=== PATIENT | male | born 1955 | race Caucasian/White ===

== ENCOUNTER 2020-09-06 09:56 | Emergency (ER) | payer MEDICARE, OTHER, SELFPAY ==
[~2020-09-06] VITALS: Ht 177.8 cm; Wt 100.4 kg
[2020-09-06] MEDS ORDERED: METF500T13 (10:10)
[2020-09-06] MEDS ORDERED: FURO40TA2 (10:10)
[2020-09-06] MEDS ORDERED: TAMS1CAP17 (10:10)
[2020-09-06] MEDS ORDERED: LOSA100T50 (10:10)
[2020-09-06] MEDS ORDERED: OMEP-218 (10:10)
[2020-09-06] MEDS ORDERED: GLIP5TAB8 (10:10)
[2020-09-06] MEDS ORDERED: CIPR-249 PO (12:03)
[2020-09-06 12:11] VITALS: BP 145/81
== END 2020-09-06 12:12 | disposition home or self-care (01) ==
LOC: M ED 09:56
DX: N30.91 Cystitis, unspecified with hematuria (principal); C61 Malignant neoplasm of prostate; I10 Essential (primary) hypertension; E11.9 Type 2 diabetes mellitus without complications; Z96.0 Presence of urogenital implants

== ENCOUNTER → 2020-10-01 | Outpatient (REF) | payer MEDICARE, SELFPAY ==
[~2020-10-01] MED LIST: CIPR-249 PO; ECOT81TA5 PO; FURO40TA2; GLIP5TAB8; LOSA100T50; METF500T13; OMEP-218; TAMS1CAP17
[2020-10-01 13:51] LABS: APPEARANCE, URINE CLOUDY (CLEAR); BACTERIA, URINE AUTO NEGATIVE (NEGATIVE); BILIRUBIN, URINE AUTO NEGATIVE (NEGATIVE); BLOOD, URINE BLOOD 3+ (NEGATIVE); COLOR, URINE YELLOW (YELLOW); GLUCOSE, URINE (UA) AUTO 1+ mg/dL (NEGATIVE); KETONE, URINE AUTO NEGATIVE (NEGATIVE); LEUKOCYTE ESTERASE, URINE AUTO 1+ (NEGATIVE); MUCUS, URINE SMALL (NEGATIVE); NITRITE, URINE AUTO NEGATIVE (NEGATIVE); PROTEIN, URINE AUTO 2+ mg/dL (NEGATIVE); RBC, URINE AUTO TNTC /HPF (0-3); SPECIFIC GRAVITY URINE AUTO 1.019 (1.002-1.035); SQUAMOUS EPITHELIAL CELL UR AU 0 /HPF (0-6); UROBILINOGEN, URINE AUTO 0.2 mg/dL (0.0-2.0); WBC, URINE AUTO 7 /HPF (0-3)
== END ==
LOC: M SMT 13:01
PROVIDERS: ATTEND Urology
DX: R31.0 Gross hematuria (principal); N40.1 Benign prostatic hyperplasia with lower urinary tract symptoms

== ENCOUNTER → 2020-10-02 | Outpatient (CLI) | payer MEDICARE, OTHER, SELFPAY | LOC: M LABSMTC 10:16 | PROVIDERS: ATTEND Anesthesiology | DX: Z20.828 Contact with and (suspected) exposure to other viral communicable diseases (principal); Z11.59 Encounter for screening for other viral diseases ==

== ENCOUNTER → 2020-10-07 | Day surgery (SDC) | payer SELFPAY ==
[~2020-10-07] VITALS: Ht 180.3 cm; Wt 86.2 kg
[~2020-10-07] MED LIST changes: +ACETAMINOPHEN 1000MG 100ML IV BTL (OFIRMEV) (J0131 PER 10MG) As Ordered ONE; +KETOROLAC 60MG 2ML VIAL As Ordered ONE; +LIDOCAINE 1% MDV 20ML VIAL SQ PRN; +LIDOCAINE 2% 100MG/5ML SDV (FOR ANES.) As Ordered ONE; +LR 1,000 ML IV ONE; +MIDAZOLAM INJ 2MG/2ML VIAL (J2250 PER 1MG) As Ordered ONE; +ONDANSETRON 4MG/2ML VIAL As Ordered ONE; +ROCURONIUM BROMIDE 50 MG/5 ML VIAL As Ordered ONE; +SUGAMMADEX SODIUM 500 MG/5 ML VIAL (BRIDION) As Ordered ONE; +ceFAZolin SOD 2 GM in IV 1 EA IV ONE; +dexameTHASONE 4 MG/ML 1ML VIAL (J1100 PER 1MG) As Ordered ONE; +fentaNYL 100 MCG/2 ML INJECTION (J3010) As Ordered ONE; +propofoL 200 MG/20 ML VIAL As Ordered ONE
[2020-10-07 13:06] VITALS: BP 175/80
== END | disposition home or self-care (01) ==
LOC: M SDC 12:41
PROVIDERS: ATTEND Urology
DX: N40.1 Benign prostatic hyperplasia with lower urinary tract symptoms (principal); Z53.29 Procedure and treatment not carried out because of patient's decision for other reasons

== ENCOUNTER 2020-11-09 11:32 | Emergency (ER) | payer MEDICARE, SELFPAY ==
[~2020-11-09] VITALS: Ht 177.8 cm; Wt 91.6 kg
[~2020-11-09 11:32] MED LIST changes: -ACETAMINOPHEN 1000MG 100ML IV BTL (OFIRMEV) (J0131 PER 10MG) As Ordered ONE; -KETOROLAC 60MG 2ML VIAL As Ordered ONE; -LIDOCAINE 1% MDV 20ML VIAL SQ PRN; -LIDOCAINE 2% 100MG/5ML SDV (FOR ANES.) As Ordered ONE; -LR 1,000 ML IV ONE; -MIDAZOLAM INJ 2MG/2ML VIAL (J2250 PER 1MG) As Ordered ONE; -OMEP-218; +OMEP-218 PO; -ONDANSETRON 4MG/2ML VIAL As Ordered ONE; -ROCURONIUM BROMIDE 50 MG/5 ML VIAL As Ordered ONE; -SUGAMMADEX SODIUM 500 MG/5 ML VIAL (BRIDION) As Ordered ONE; -TAMS1CAP17; +TAMS1CAP17 PO; -ceFAZolin SOD 2 GM in IV 1 EA IV ONE; -dexameTHASONE 4 MG/ML 1ML VIAL (J1100 PER 1MG) As Ordered ONE; -fentaNYL 100 MCG/2 ML INJECTION (J3010) As Ordered ONE; -propofoL 200 MG/20 ML VIAL As Ordered ONE
[2020-11-09] MEDS ORDERED: ENAL5TA PO (12:04)
[2020-11-09 12:37] LABS: HEMATOCRIT 37.4 % (42.0-52.0); HEMOGLOBIN 11.9 g/dl (13.5-17.5); MEAN CORPUSCULAR HEMOGLOBIN 26.6 pg (27.0-33.0); MEAN CORPUSCULAR HGB CONC 31.8 g/dl (32.0-36.5); MEAN CORPUSCULAR VOLUME 83.5 fl (80.0-96.0); PLATELET COUNT, AUTOMATED 279 10^3/uL (150-450); RED BLOOD COUNT 4.48 10^6/uL (4.30-6.10); WHITE BLOOD COUNT 8.7 10^3/uL (4.0-10.0)
[2020-11-09 12:45] LABS: BILIRUBIN, URINE MANUAL NEGATIVE (NEGATIVE); GLUCOSE, URINE (UA) MANUAL NEGATIVE (NEGATIVE); KETONE, URINE MANUAL NEGATIVE (NEGATIVE); UROBILINOGEN, URINE MANUAL NORMAL (NORMAL)
[2020-11-09 12:48] LABS: INR 0.87
[2020-11-09 12:52] LABS: BACTERIA, URINE SMALL AMOUNT; HYALINE CAST, URINE NONE SEEN /lpf (0-1); RBC, URINE TNTC /hpf (0-3); SQUAMOUS EPITHELIAL CELL URINE SMALL AMOUNT /hpf (SMALL AMT)
[2020-11-09] MEDS ORDERED: LIDOCAINE 2% 5ML JELLY UROJET TOP ONE (13:00)
[2020-11-09 13:44] VITALS: BP 149/67
[2020-11-09] MEDS ORDERED: METO1TAB33 PO (20:17)
[2020-11-09] MEDS ORDERED: FURO20TA2 PO (20:17)
[2020-11-09] MEDS ORDERED: GLYB5TAB6 PO (20:17)
[2020-11-10] MEDS ORDERED: BACT800T5 PO (16:20)
== END 2020-11-09 14:24 | disposition home or self-care (01) ==
LOC: M ED 11:32
DX: R31.29 Other microscopic hematuria (principal); T83.091A Other mechanical complication of indwelling urethral catheter, initial encounter; E11.9 Type 2 diabetes mellitus without complications; N40.1 Benign prostatic hyperplasia with lower urinary tract symptoms; I11.0 Hypertensive heart disease with heart failure; Z46.6 Encounter for fitting and adjustment of urinary device

== ENCOUNTER 2020-11-09 16:43 | Observation (INO) | payer MEDICARE, SELFPAY ==
[~2020-11-09] VITALS: Ht 180.3 cm; Wt 91.2 kg
[~2020-11-09 16:43] MED LIST changes: +ENAL5TA PO
[2020-11-09] MEDS ORDERED: LIDOCAINE 2% 5ML JELLY UROJET TOP ONE (17:25)
--- NOTE | 2020-11-09 20:08 | HPEPDOC ---
General Date of Admission Chief Complaint The patient is a 65-year-old male admitted with a reason for visit of Urinary Retention. Home Medications Scheduled Aspirin (Ecotrin) 81 Mg Tablet.dr, 81 MG PO DAILY, (Reported) Enalapril Maleate (Enalapril Maleate) 5 Mg Tablet, 1 TAB PO BID, (Reported) Miscellaneous Medications Furosemide (Furosemide) 40 Mg Tablet, (Reported) Glipizide (Glipizide) 5 Mg Tablet, (Reported) Omeprazole (Omeprazole) 20 Mg Capsule.dr, (Reported) Tamsulosin Hcl (Tamsulosin HCl) 0.4 Mg Capsule, (Reported) Allergies Coded Allergies: No Known Allergies (Unverified , 05/09/14) Vital Signs Vital Signs Date Time Temp Pulse Resp B/P (MAP) Pulse Ox O2 Delivery O2 Flow Rate FiO2 11/09/20 18:14 11/09/20 16:44 98.2 82 18 95 Room Air Laboratory Data Labs 24H Laboratory Tests 2 11/09/20 17:58: Bedside Glucose (Misc Panel) 193H 11/09/20 18:30: POC Glucose (Misc Panel) 187H, POC Sodium (Misc Panel) 140, POC Potassium (Misc Panel) 3.3L, POC Chloride (Misc Panel) 101, POC Total CO2 (Misc Panel) 25.0, POC Blood Urea Nitrogen (Misc Panel 14, POC Ionized Calcium (Misc Panel) 4.8, POC Creatinine (Misc Panel) 1.0, POC Hematocrit (Misc Panel) 32.0L Assessment/Plan Pt managed with indwelling catheter. Presented to ER with hematuria. Catheter changed and pt discharged home. Presented again to ER because catheter wasn't draining. 3way catheter placed and cbi started. Pt brought in for observation. TRACEY ULQUE MD Nov 09, 2020 20:08
[2020-11-09] MEDS ORDERED: GLYB5TAB6 PO (20:17)
[2020-11-09] MEDS ORDERED: METO1TAB33 PO (20:17)
[2020-11-09] MEDS ORDERED: FURO20TA2 PO (20:17)
[2020-11-09 21:09] LABS: RSV AMPLIFICATION NEGATIVE (NEGATIVE)
[2020-11-09] MEDS: CIPROFLOXACIN 500MG TABLET PO SCH (21:20)
[2020-11-09] MEDS: D5W/0.45% SODIUM CHLORIDE 1,000 ML IV SCH (21:21)
[2020-11-09 23:05] VITALS: BP 160/84
[2020-11-09] MEDS: oxyBUTYnin 5 MG TAB PO SCH (23:38)
[2020-11-10 02:00] VITALS: BP 171/80
[2020-11-10 02:30] VITALS: BP 160/79
[2020-11-10 06:00] VITALS: BP 159/77
[2020-11-10 06:21] LABS: HEMATOCRIT 32.4 % (42.0-52.0); HEMOGLOBIN 10.2 g/dl (13.5-17.5); MEAN CORPUSCULAR HEMOGLOBIN 26.1 pg (27.0-33.0); MEAN CORPUSCULAR HGB CONC 31.5 g/dl (32.0-36.5); MEAN CORPUSCULAR VOLUME 82.9 fl (80.0-96.0); PLATELET COUNT, AUTOMATED 206 10^3/uL (150-450); RED BLOOD COUNT 3.91 10^6/uL (4.30-6.10); WHITE BLOOD COUNT 6.2 10^3/uL (4.0-10.0)
[2020-11-10 06:44] LABS: ALBUMIN 2.8 GM/DL (3.2-5.2); ALT/SGPT 13 U/L (12-78); BILIRUBIN,TOTAL 0.3 MG/DL (0.2-1.0); BLOOD UREA NITROGEN 10 MG/DL (7-18); CALCIUM LEVEL 8.5 MG/DL (8.8-10.2); CARBON DIOXIDE LEVEL 28 MEQ/L (21-32); CHLORIDE LEVEL 107 MEQ/L (98-107); CREATININE FOR GFR 0.95 MG/DL (0.70-1.30); GLOMERULAR FILTRATION RATE > 60.0 (>49); GLUCOSE, FASTING 151 MG/DL (70-100); POTASSIUM SERUM 3.5 MEQ/L (3.5-5.1); SODIUM LEVEL 141 MEQ/L (136-145); TOTAL PROTEIN 5.9 GM/DL (6.4-8.2)
--- NOTE | 2020-11-10 08:07 | IPNPDOC ---
Date Seen The patient was seen on 11/10/20. Progress Note pt seen and examined this morning avss 3way catheter in place with cbi urine clear I hand irrigated and pulled back no clots plan when able, stop cbi if remains clear, home with catheter apparently scheduled for a turp in 12/02 VS, I&O, 24H, Cash Vital Signs/I&O Vital Signs Date Time Temp Pulse Resp B/P (MAP) Pulse Ox O2 Delivery O2 Flow Rate FiO2 11/10/20 06:00 98.3 53 20 159/77 (104) 97 Room Air I&O- Last 24 Hours up to 6 AM 11/10/20 06:00 Intake Total 675 ml Output Total 7685 ml Balance -7010 ml Laboratory Data 24H LABS Laboratory Tests 2 11/09/20 17:58: Bedside Glucose (Misc Panel) 193H 11/09/20 18:30: POC Glucose (Misc Panel) 187H, POC Sodium (Misc Panel) 140, POC Potassium (Misc Panel) 3.3L, POC Chloride (Misc Panel) 101, POC Total CO2 (Misc Panel) 25.0, POC Blood Urea Nitrogen (Misc Panel 14, POC Ionized Calcium (Misc Panel) 4.8, POC Creatinine (Misc Panel) 1.0, POC Hematocrit (Misc Panel) 32.0L 11/09/20 20:18: Coronavirus (COVID-19)(PCR) NEGATIVE, Influenza Type A (RT-PCR) NEGATIVE, Influenza Type B (RT-PCR) NEGATIVE, Respiratory Syncytial Virus (PCR) NEGATIVE 11/10/20 05:17: Nucleated Red Blood Cells % (auto) 0.0, Anion Gap 6L, Glomerular Filtration Rate > 60.0, Calcium Level 8.5L, Total Bilirubin 0.3, Aspartate Amino Transf (AST/SGOT) 8, Alanine Aminotransferase (ALT/SGPT) 13, Alkaline Phosphatase 83, Total Protein 5.9L, Albumin 2.8L, Albumin/Globulin Ratio 0.9 CBC/BMP Laboratory Tests 11/10/20 05:17 TRACEY LUQUE MD Nov 10, 2020 08:07
[2020-11-10] MEDS: CIPROFLOXACIN 500MG TABLET PO SCH (09:45)
[2020-11-10] MEDS: oxyBUTYnin 5 MG TAB PO SCH (09:45)
[2020-11-10] MEDS: D5W/0.45% SODIUM CHLORIDE 1,000 ML IV SCH (09:46)
[2020-11-10 10:00] VITALS: BP 151/77
[2020-11-10] MEDS ORDERED: BACT800T5 PO (16:20)
--- NOTE | 2020-11-10 16:23 | IPNPDOC ---
Date Seen The patient was seen on 11/10/20. Progress Note I spoke with nurse a few minutes ago. Cbi has been off for several hours and urine is clear. Plan is discharge home with catheter. Plug third port. F/u is turp. VS, I&O, 24H, Fishbone Vital Signs/I&O Vital Signs Date Time Temp Pulse Resp B/P (MAP) Pulse Ox O2 Delivery O2 Flow Rate FiO2 11/10/20 10:00 97.8 60 18 151/77 (101) 95 Room Air I&O- Last 24 Hours up to 6 AM 11/10/20 06:00 Intake Total 675 ml Output Total 7685 ml Balance -7010 ml Laboratory Data 24H LABS Laboratory Tests 2 11/09/20 17:58: Bedside Glucose (Misc Panel) 193H 11/09/20 18:30: POC Glucose (Misc Panel) 187H, POC Sodium (Misc Panel) 140, POC Potassium (Misc Panel) 3.3L, POC Chloride (Misc Panel) 101, POC Total CO2 (Misc Panel) 25.0, POC Blood Urea Nitrogen (Misc Panel 14, POC Ionized Calcium (Misc Panel) 4.8, POC Creatinine (Misc Panel) 1.0, POC Hematocrit (Misc Panel) 32.0L 11/09/20 20:18: Coronavirus (COVID-19)(PCR) NEGATIVE, Influenza Type A (RT-PCR) NEGATIVE, Influenza Type B (RT-PCR) NEGATIVE, Respiratory Syncytial Virus (PCR) NEGATIVE 11/10/20 05:17: Nucleated Red Blood Cells % (auto) 0.0, Anion Gap 6L, Glomerular Filtration Rate > 60.0, Calcium Level 8.5L, Total Bilirubin 0.3, Aspartate Amino Transf (AST/SGOT) 8, Alanine Aminotransferase (ALT/SGPT) 13, Alkaline Phosphatase 83, Total Protein 5.9L, Albumin 2.8L, Albumin/Globulin Ratio 0.9 CBC/BMP Laboratory Tests 11/10/20 05:17 TRACEY LUQUE MD Nov 10, 2020 16:23
== END 2020-11-10 17:23 | disposition home or self-care (01) ==
LOC: M ED 16:43 → M ED INP 16:44 → ENRESERV 22:48 → M MSPAV 23:10
PROVIDERS: ADMIT Urology; ATTEND Urology
DX: T83.098A Other mechanical complication of other urinary catheter, initial encounter (principal); R31.0 Gross hematuria; R33.9 Retention of urine, unspecified; E11.9 Type 2 diabetes mellitus without complications; I10 Essential (primary) hypertension; Z79.82 Long term (current) use of aspirin; Z79.899 Other long term (current) drug therapy; I50.9 Heart failure, unspecified

== ENCOUNTER 2020-11-15 07:56 | Emergency (ER) | payer MEDICARE, SELFPAY ==
[~2020-11-15] VITALS: Ht 177.8 cm; Wt 89.7 kg
[~2020-11-15 07:56] MED LIST changes: +BACT800T5 PO; +FURO20TA2 PO; +GLYB5TAB6 PO; +METO1TAB33 PO
--- NOTE | 2020-11-15 09:32 | REP ---
INDICATION: fuentes cath problem, reported b/l flank pain COMPARISON: None TECHNIQUE: Real time wheeler scale ultrasound examination using curved array transducer. FINDINGS: Bilateral kidneys are normal in contour, size, echogenicity, and reniform shape. No hydronephrosis, nephrolithiasis, or renal mass lesion. Right kidney measures 14.2 x 5.9 x 6.6 cm and includes 1.7 cm lower pole cyst. Left kidney measures 12.7 x 5.5 x 5.0 cm and demonstrates mild hydronephrosis along with 1.8 cm simple lower pole cyst and 2.7 cm lower pole complex cyst versus mass. Prostate gland is enlarged and measures 9.3 x 6.9 x 6.9 cm. Fuentes catheter in collapsed bladder noted. IMPRESSION: 1. Left kidney with mild hydronephrosis and lower pole complex cyst versus mass right kidney with simple cyst and no hydronephrosis. Consider short-term pre and postcontrast CT follow-up of the abdomen. 2. Prostatomegaly. <Electronically signed by Declan Sykes > 11/15/20 [id number]
[2020-11-15 10:14] LABS: BASO # 0.1 10^3/uL (0.0-0.2); EOS # 0.1 10^3/uL (0.0-0.5); EOS % 1.5 % (0.0-3.0); HEMATOCRIT 35.3 % (42.0-52.0); HEMOGLOBIN 11.1 g/dl (13.5-17.5); LYMPH % 25.3 % (24.0-44.0); MEAN CORPUSCULAR HEMOGLOBIN 26.2 pg (27.0-33.0); MEAN CORPUSCULAR HGB CONC 31.4 g/dl (32.0-36.5); MEAN CORPUSCULAR VOLUME 83.5 fl (80.0-96.0); MONO # 0.4 10^3/uL (0.0-0.8); MONO % 4.4 % (2.0-8.0); NEUTROPHILS # 5.3 10^3/uL (1.5-8.5); NEUTROPHILS % 67.4 % (36.0-66.0); PLATELET COUNT, AUTOMATED 246 10^3/uL (150-450); RED BLOOD COUNT 4.23 10^6/uL (4.30-6.10); WHITE BLOOD COUNT 7.9 10^3/uL (4.0-10.0)
[2020-11-15] MEDS ORDERED: ISOVUE-370 76% 100ML VIAL As Ordered ONE (10:50)
--- NOTE | 2020-11-15 12:20 | REP ---
INDICATION: hematuria, cyst vs mass on renal U/S, fuentes catheter. COMPARISON: 05/11/2015 TECHNIQUE: Axial precontrast, arterial phase, and delayed phase contrast-enhanced images from the lung bases to the pubic symphysis using 100 cc Isovue 370 intravenous contrast material. Coronal and sagittal reformations obtained. This CT examination was performed using the following dose reduction techniques: Automated exposure control, adjustment of mA and/or kv according to the patient's size, and the use of iterative reconstruction technique. FINDINGS: Right kidney includes 1.5 cm lower pole high density proteinaceous benign appearing Bosniak 2 cyst which remains stable throughout the examination as well as 1.3 cm upper pole simple cyst. Mild hydronephrosis and hydroureter secondary to obstruction by large heterogeneous enhancing prostate gland with significant mass effect on the bladder. Left kidney includes 3.1 cm complex septated benign Bosniak 2 cyst which remains stable throughout the examination. Mild hydronephrosis and hydroureter secondary to obstruction by large heterogeneous enhancing prostate gland with significant mass effect on the bladder. Liver, spleen, pancreas, gallbladder, and bilateral adrenal glands are normal. The enteric system is without obstruction or acute inflammatory process. Colonic diverticulosis without acute diverticulitis noted. Pelvis demonstrates Fuentes catheter in collapsed/compressed bladder secondary to heterogeneous enhancing markedly enlarged prostate gland measuring 10 cm maximal diameter with surrounding fat stranding and small pelvic sidewall lymph nodes. There are 2 enhancing mass lesions versus pathologic lymph nodes anterior to the bladder and enlarged prostate gland measuring 16 and 19 mm (series 401; images 133-143). Smaller scattered pelvic lymph nodes are also identified. No ascites. No free air. Abdominal aorta without aneurysm or dissection. Musculoskeletal structures demonstrate age-related degenerative changes. IMPRESSION: 1. Kidneys demonstrate simple and complex benign cysts and mild hydronephrosis/hydroureter secondary to severely enlarged heterogeneous enhancing prostate gland causing significant mass effect on the bladder. Enhancing suspected pathologic lymph nodes anterior to the bladder/prostate and smaller scattered pelvic lymph nodes are also identified. Findings are suspicious for prostate cancer. Correlation and further investigation is required. <Electronically signed by Declan Sykes > 11/15/20 2134
[2020-11-15 13:50] VITALS: BP 149/70
--- NOTE | 2020-11-16 06:29 | ED PDOC ---
Post-Departure Follow-Up dr dale ennis and dr dooley faxed formal report of ct abd/p for fu Sander Vitale MD Nov 16, 2020 06:29
[2020-11-17 23:07] LABS: PSA TOTAL 12.5 ng/mL (0.0-4.0)
== END 2020-11-15 13:51 | disposition home or self-care (01) ==
LOC: M ED 07:56
DX: R31.9 Hematuria, unspecified (principal); T83.091A Other mechanical complication of indwelling urethral catheter, initial encounter; N13.39 Other hydronephrosis; N28.1 Cyst of kidney, acquired; N40.1 Benign prostatic hyperplasia with lower urinary tract symptoms; N13.4 Hydroureter; N42.89 Other specified disorders of prostate; R59.9 Enlarged lymph nodes, unspecified; I11.0 Hypertensive heart disease with heart failure; E11.9 Type 2 diabetes mellitus without complications; K21.9 Gastro-esophageal reflux disease without esophagitis; Z79.899 Other long term (current) drug therapy
CPT/HCPCS: 36415; 74178; 76775; 80047; 81001; 84154; 85025; 99284; Q9967

== ENCOUNTER → 2020-12-09 | Outpatient (CLI) | payer MEDICARE, SELFPAY ==
[~2020-12-09] MED LIST changes: +PROHANCE 279.3MG/ML 15ML VIAL As Ordered ONE; +PROHANCE 279.3MG/ML 5ML VIAL As Ordered ONE
--- NOTE | 2020-12-09 11:50 | REP ---
INDICATION: ELEVATED PSA. COMPARISON: Comparison CT study November 15, 2020. Comparison sonography July 31, 2015. There is a comparison CT study from May 11, 2015 as well. TECHNIQUE: Using a phased array surface coil, small jyhpy-vp-ucwu imaging was acquired using T2 weighted scans in the axial, coronal, and sagittal imaging planes. Small scpsf-lu-velz diffusion-weighted sequences are acquired. Small npoky-bp-edey axial T1 weighted scans are acquired dynamically before and after the intravenous administration of 18 mL of ProHance. Imaging is reviewed using the [employer] computer-aided detection system. FINDINGS: There is no evidence of skeletal metastatic disease. There are 2 suspicious enhancing lymph nodes to the left and anterior to the bladder as described on recent CT study. These measure 1.2 and 1.7 cm in greatest diameter respectively. There are smaller enhancing bilateral external iliac lymph nodes. Normal appearing inguinal lymph nodes are seen. There are small subcentimeter internal iliac lymph nodes the largest of which is on the left measuring 0.6 cm in short axis dimension. The prostate is markedly enlarged and there is heterogeneous nodular enlargement of the central gland. The bladder base is elevated. A Carr catheter is noted in place. I do not see obvious evidence of trans capsular prostatic disease. Seminal vesicles are normal and symmetric. Prostate dimensions are 7.9 x 7.2 x 8.6 cm, calculated glandular volume 255.9 mL. There are multiple T2 hyperintense nodules in the central gland. No obvious peripheral zone nodule or mass lesion is observed. Three separate foci of low T2 signal intensity are identified and outlined for consideration of fusion directed biopsy. The 1st lesion is in the left mid anterior transition zone with a calculated volume of 6.17 mL and diameters of 3.3 x 2.1 x 2.1 cm. This shows low T2 signal, some reduction in diffusion ADC. BI-RADS category is felt to be 3 intermediate. The 2nd lesion is in the right base anterior transition zone with a calculated volume of 1.7 mL and dimensions of 2.3 x 1.3 x 1.4 cm. This is a low T2 signal intensity encapsulated appearing nodule with type 3 and contrast enhancement and ill-defined low ADC on diffusion-weighted scans. BI-RADS category 3 intermediate. The 3rd lesion is in the left mid posterior transition zone. Calculated volume 2.12 mL, dimensions 1.7 x 1.0 x 1.7 cm. A low T2 signal intensity encapsulated nodule is seen without abnormal cyst diffusion-weighted signal. Type 3 contrast enhancement curve. BI-RADS category 2 low probability. IMPRESSION: The prostate is markedly enlarged. There are suspicious extraprostatic lymph nodes, the 2 most prominent of which are anterior and to the left of the urinary bladder. No other evidence of extraprostatic disease is seen. Three targets are identified as above. <Electronically signed by Jayjay Gray > 12/09/20 [id number]
== END ==
LOC: M RAD 12-04 07:42
PROVIDERS: ATTEND Urology
DX: R97.20 Elevated prostate specific antigen [PSA] (principal)
CPT/HCPCS: 72197; A9576

== ENCOUNTER 2020-12-15 10:00 | Emergency (ER) | payer OTHER, MEDICARE ==
[~2020-12-15] VITALS: Ht 177.8 cm; Wt 91.4 kg
[~2020-12-15 10:00] MED LIST changes: -CIPR500T39 PO
[2020-12-15 10:39] LABS: BASO % 0.5 % (0.0-1.0); EOS # 0.1 10^3/uL (0.0-0.5); EOS % 0.8 % (0.0-3.0); HEMATOCRIT 39.6 % (42.0-52.0); HEMOGLOBIN 12.5 g/dl (13.5-17.5); LYMPH # 1.8 10^3/uL (1.5-5.0); LYMPH % 22.4 % (24.0-44.0); MEAN CORPUSCULAR HEMOGLOBIN 25.5 pg (27.0-33.0); MEAN CORPUSCULAR HGB CONC 31.6 g/dl (32.0-36.5); MEAN CORPUSCULAR VOLUME 80.7 fl (80.0-96.0); MONO # 0.4 10^3/uL (0.0-0.8); MONO % 4.9 % (2.0-8.0); NEUTROPHILS # 5.6 10^3/uL (1.5-8.5); NEUTROPHILS % 71.1 % (36.0-66.0); PLATELET COUNT, AUTOMATED 218 10^3/uL (150-450); RED BLOOD COUNT 4.91 10^6/uL (4.30-6.10); WHITE BLOOD COUNT 7.8 10^3/uL (4.0-10.0)
[2020-12-15] MEDS ORDERED: CIPR500T39 PO (11:16)
[2020-12-15 12:19] VITALS: BP 132/71
--- NOTE | 2020-12-15 21:55 | ECGEPIP ---
[facility] - ED Test Date: 2020-12-15 Pat Name: MARTA HALE Department: Room: - Gender: Male Supervisor Records Change: kellee : 1955 Requested By: Jeff Monson Order Number: [id number] Reading MD: Jeff De La Fuente Measurements Intervals [place] Rate: 56 P: 44 PA: 152 QRS: 13 QRSD: 92 T: 58 QT: 448 QTc: 432 Interpretive Statements Sinus bradycardia POOR R WAVE PROGRESSION NO PRIORS FOR COMPARISON Electronically Signed on 12-15-2020 21:55:16 EDT by Jeff De La Fuente
== END 2020-12-15 12:20 | disposition home or self-care (01) ==
LOC: M ED 10:00 → EDBD 10:00 → M ED 12:20
DX: R55 Syncope and collapse (principal); I10 Essential (primary) hypertension; Z79.899 Other long term (current) drug therapy

== ENCOUNTER → 2020-12-15 | Outpatient (CLI) | payer MEDICARE, SELFPAY ==
[~2020-12-15] MED LIST changes: +CIPR500T39 PO; -PROHANCE 279.3MG/ML 15ML VIAL As Ordered ONE; -PROHANCE 279.3MG/ML 5ML VIAL As Ordered ONE
== END ==
LOC: M PLAIMG 08:01
PROVIDERS: ATTEND Urology
DX: R97.20 Elevated prostate specific antigen [PSA] (principal)

== ENCOUNTER 2020-12-25 19:36 | Emergency (ER) | payer MEDICAID, SELFPAY ==
[~2020-12-25] VITALS: Ht 177.8 cm; Wt 91.9 kg
[~2020-12-25 19:36] MED LIST changes: +CIPR500T39 PO
[2020-12-25] MEDS ORDERED: LIDOCAINE 2% 5ML JELLY UROJET TOP ONE (21:00)
[2020-12-25 21:10] VITALS: BP 128/74
== END 2020-12-25 21:10 | disposition home or self-care (01) ==
LOC: M ED 19:36
DX: T83.091A Other mechanical complication of indwelling urethral catheter, initial encounter (principal); I10 Essential (primary) hypertension; Z79.899 Other long term (current) drug therapy